=== PATIENT | male | born 1980 | race African-American/Black ===

== ENCOUNTER 2016-05-14 04:34 | Emergency (ER) | payer OTHER ==
[2016-05-14 04:59] VITALS: BP 131/89
[2016-05-14] MEDS ORDERED: TORADOL IM ONE (05:14)
[2016-05-14] MEDS ORDERED: TORADOL ONE (05:14)
[2016-05-14 05:22] LABS: URINE CULTURE PL NEEDED? NO; URINE SOURCE VOIDED
[2016-05-14 05:42] LABS: MANUAL DIFF NEEDED? NO
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
[2016-05-14 05:48] LABS: BASO% 0.2 % (0.0-0.8); EOS# 0.18 X1000 (0.0-0.7); EOS% 2.1 % (0.0-10.0); HEMOGLOBIN 12.9 g/dL (14.0-18.0); IMM GRAN# 0.01 X1000 (0.0-0.04); IMM GRAN% 0.1 % (0.0-0.5); LYMPH# 2.91 X1000 (1.2-3.4); LYMPH% 34.6 % (20.5-51.1); MCH 25.7 PG (27-31); MCHC 33.1 g/dL (33-37); MCV 77.7 FL (81-99); MONO# 1.13 X1000 (0.11-0.59); MONO% 13.4 % (1.7-9.3); NEUT% 49.6 % (42.2-75.2); PLT 212 X1000 (130-400); RBC 5.02 XMIL (4.7-6.1)
[2016-05-14 05:51] LABS: BILIRUBIN URINE NEGATIVE (NEGATIVE); BLOOD URINE 4+ (NEGATIVE); CLARITY CLEAR (CLEAR); COLOR YELLOW; GLUCOSE URINE NEGATIVE (NEGATIVE); LEUKOCYTES URINE TRACE (NEGATIVE); NITRITE URINE NEGATIVE (NEGATIVE); PH URINE 6.5; PROTEIN URINE TRACE mg/dL (NEGATIVE); UROBILINOGEN URINE NORMAL
[2016-05-14 05:57] LABS: URINE EPITHELIAL CELLS <10 /HPF (<10); URINE RBC TNTC /HPF (<10); URINE WBC <10 /HPF (<10)
[2016-05-14 06:15] LABS: AGAP 8; BUN 18 mg/dL (8-22); CHLORIDE 101 mmol/L (98-107); POTASSIUM 4.6 mmol/L (3.5-5.1); SODIUM 138 mmol/L (136-145); TCO2 29 mmol/L (25-35); TOTAL BILIRUBIN < 0.15 mg/dL (0.20-1.00); TOTAL PROTEIN 6.5 g/dL (6.3-8.3)
[2016-05-14 06:31] LABS: INR 1.02 (0.86-1.15); PROTIME 13.7 Seconds (12.1-15.5)
--- NOTE | 2016-05-14 09:18 | Diag Imaging Result Document ---
PROCEDURE NAME: ABDOMEN/PELVIS W/O CONTRAST - 05/14/2016 CT UROGRAM WITHOUT CONTRAST: FINDINGS: There are a number of irregular nodular opacities present in the right lower lobe. No previous studies are available for comparison. There appear to be some calcifications present in the opacity present on image 1 in the anterior right lower lobe, and this may be chronic and related to granulomatous disease. There are calcified granulomata in the liver and spleen. There is no evidence of calcified gallstones. There is no evidence of nephrolithiasis or hydronephrosis. The appendix is normal in appearance. There is no evidence of bowel obstruction. There is some stool throughout the colon. There is no evidence of free fluid. The regional skeleton appears to be intact. There is no evidence of ureterolithiasis. There are some arterial calcifications demonstrated in the aorta and iliac arteries. IMPRESSION: Apparent chronic pulmonary changes. No evidence of stones or obstruction. Granulomatous changes as described.
[2016-05-14 10:09] LABS: ALBUMIN 3.8 g/dL (3.5-5.0); ALKALINE PHOSPHATASE 59 U/L (32-122); COSMO 276; GOT 28 U/L (10-34); GPT 13 U/L (10-44)
== END 2016-05-14 09:46 | disposition home or self-care (01) ==
LOC: P.ED 04:34
DX: R31.9 Hematuria, unspecified (principal); R30.0 Dysuria; R10.9 Unspecified abdominal pain; R10.31 Right lower quadrant pain; M54.9 Dorsalgia, unspecified; I10 Essential (primary) hypertension; Z79.899 Other long term (current) drug therapy
CPT/HCPCS: 74176; 80053; 81001; 84153; 85025; 85610; 96372; J1885